=== PATIENT | female | born 1965 | race Caucasian/White ===

== ENCOUNTER → 2017-01-31 | Outpatient (CLI) | payer BC ==
[2017-01-31 14:00] LABS: Basophils # (A) 0.1 k/uL (0-0.2); Basophils % (A) 1 %; CH 33.1; CHCM 36.2; Eosinophils # (A) 0.4 k/uL (0-0.7); Eosinophils % (A) 4 %; HCT 37.4 % (34.0-46.0); HDW 2.89; HGB 13.7 gm/dL (11.4-16.0); Luc # (Auto) 0.12; Luc % (Auto) 1; Lymphocytes # (A) 2.6 k/uL (1.0-4.8); Lymphocytes % (A) 25 %; MCH 33.6 pg (25.0-35.0); MCHC 36.5 g/dL (31.0-37.0); MCV 92.1 fL (80.0-100.0); Mean Platelet Volume 9.4; Monocytes # (A) 0.3 k/uL (0-1.0); Monocytes % (A) 3 %; Neutrophils # (A) 6.6 k/uL (1.3-7.7); Neutrophils % (A) 66 %; RBC 4.06 m/uL (3.80-5.40); WBC 10.1 k/uL (3.8-10.6); WBC (Perox) 10.09
[2017-01-31 14:30] LABS: Potassium 3.8 mmol/L (3.5-5.1)
== END | disposition home or self-care (01) ==
LOC: LABWHC1 13:15
PROVIDERS: ATTEND Physician Assistant
DX: N20.0 Calculus of kidney (principal)
CPT/HCPCS: 36415; 80051; 85025

== ENCOUNTER 2017-02-05 08:08 | Day surgery (SDC) | payer BC ==
[2017-02-01 09:33] VITALS: BMI 26.9
[~2017-02-05 08:08] MED LIST: DEXAMETHASONE SOD PHOSPHATE 10 MG/ML 1 ML VIAL IV ONE; HYDROmorphone 1 MG/ML 1 ML SYRINGE IVP PRN; LACTATED RINGERS 1,000 ML IV SCH; LIDOCAINE 1% 20 ML VIAL (10MG/ML) FOR IV START INTRADERMA PRN; ONDANSETRON 4 MG/2 ML VIAL IVP ONE; Pre Op ABX Message 1 EACH MISC MISCELLANE ONE; SCOPOLAMINE 1.5MG/72HR PATCH TRANSDERM ONE
--- NOTE | 2017-02-05 08:19 | XR ---
EXAMINATION TYPE: XR KUB DATE OF EXAM: 02/05/2017 8:05 AM CLINICAL HISTORY: Left-sided kidney stone. TECHNIQUE: 2 supine KUB images of the abdomen are obtained. COMPARISON: Abdominal x-ray December 24, 2014. FINDINGS: There are 3-6 left-sided renal felt present. Largest is more medial and irregular in contou r measuring approximately 10 x 8 mm at superior L2 vertebral level suspected medial mid pole left kid bryon likely within pelvis. No definite right-sided nephrolithiasis. Right-sided pelvic phleboliths. Multilevel spurring in the spine. Slight dextroconvex scoliosis noted. Overall nonobstructive bowel g as pattern. IMPRESSION: Left-sided nephrolithiasis with a 10 mm irregular calculus likely within left renal pelvis.
[2017-02-05 08:24] VITALS: TEMP 97.8
[2017-02-05] MEDS ORDERED: LIDOCAINE 1% INJ 10MG/ML (20 ML MDV) ONE (08:51)
[2017-02-05] MEDS ORDERED: KETAMINE 10 MG/ML 20 ML VIAL ONE (08:51)
[2017-02-05] MEDS ORDERED: GLYCOPYRROLATE 0.2 MG/ML 2 ML VIAL ONE (08:51)
[2017-02-05] MEDS ORDERED: fentaNYL (PF) 50 MCG/ML 2 ML AMP ONE (08:51)
[2017-02-05] MEDS ORDERED: PROPOFOL 10 MG/ML 20 ML VIAL IV ONE (08:51)
[2017-02-05] MEDS ORDERED: MIDAZOLAM 2 MG/2 ML VIAL ONE (08:51)
--- NOTE | 2017-02-05 09:47 | P.OP ---
Date of Procedure: 02/05/17 Preoperative Diagnosis: Left Renal Calculi Postoperative Diagnosis: Same Procedure(s) Performed: Left Extracorporeal Shockwave Lithotripsy (ESWL) Implants: Anesthesia: MAC Surgeon: Beau Connolly Estimated Blood Loss (ml): 0 IV fluids (ml): 600 Pathology: none sent Condition: stable Disposition: PACU Indications for Procedure: She is a 51 year old female with a history of urolithiasis. She underwent a left PCNL in 2014. She developed left flank pain 2 months ago, and a CT scan shows a 1 cm left renal pelvic calculus. He has elected to undergo ESWL. Operative Findings: Excellent fragmentation. Description of Procedure: The patient was taken to the operating room and placed on the [place] lithotripter in the supine position. The calculi were seen on biplanar fluoroscopy. Once the patient was properly positioned and sedated, lithotripsy was performed. The energy level was gradually increased per protocol, to an energy level of 5. After 200 shocks were administered, a 2 minute pause was instituted per protocol. A total of 2500 shocks were given at a rate of 60-70 shocks per minute. Fluoroscopy was utilized at a minimum to ensure proper positioning and determine the treatment status. The calculus changed in appearance, consistent with fragmentation. The patient tolerated the procedure well was taken to the recovery room in stable condition. Instructions were given to strain the urine, and the patient will follow-up within one week.
[2017-02-05 09:53] VITALS: RESP 16
[2017-02-05 10:39] VITALS: BP 141/77; PULSE 67
== END 2017-02-05 11:28 | disposition home or self-care (01) ==
LOC: ORWHC2ENDO 08:08
PROVIDERS: ATTEND Urology
DX: N20.0 Calculus of kidney (principal); I10 Essential (primary) hypertension; E78.5 Hyperlipidemia, unspecified; F17.200 Nicotine dependence, unspecified, uncomplicated; Z79.1 Long term (current) use of non-steroidal anti-inflammatories (NSAID); Z79.891 Long term (current) use of opiate analgesic; Z79.899 Other long term (current) drug therapy; Z88.0 Allergy status to penicillin; Z88.1 Allergy status to other antibiotic agents; Z88.2 Allergy status to sulfonamides
CPT/HCPCS: 74000; 50590; J2250; J2001; J3010; J2704

== ENCOUNTER → 2017-02-09 | Outpatient (CLI) | payer BC ==
--- NOTE | 2017-02-09 13:17 | XR ---
EXAMINATION TYPE: XR KUB DATE OF EXAM: 02/09/2017 HISTORY: post op eval, left side stones. Comparison: 02/05/2017 Single KUB is submitted for interpretation. Findings: Right renal calculi: None Visualized. Right ureteral calculi: None Visualized. Left renal calculi: 10 mm calculus noted previously in the location of the left renal pelvis is not clearly visualized. Several smaller calculi overlying the mid to lower pole of the left kidney measu ring up to 3.8 mm and appear essentially unchanged although overlying bowel content does limit evalua tion. Left ureteral calculi: No calculus is seen along the expected course of the left ureter at this time . Pelvic calcifications: Stable right-sided phlebolith. Bowel gas pattern is unremarkable. No free air. No mass effects. IMPRESSION: 1. 10 mm calculus noted previously in the location of the left renal pelvis is not clearly visualized . Several smaller calculi overlying the mid to lower pole of the left kidney measuring up to 3.8 mm and appear essentially unchanged although overlying bowel content does limit evaluation.
== END | disposition home or self-care (01) ==
LOC: RADXRMAIN 12:47
PROVIDERS: ATTEND Physician Assistant
DX: N20.0 Calculus of kidney (principal)
CPT/HCPCS: 74000